=== PATIENT | male | born 1990 | race Two or more races ===

== ENCOUNTER 2020-11-01 13:37 | Emergency (ER) | payer SELFPAY ==
--- NOTE | 2020-11-01 14:05 | NUR ---
CALLED IN ED WAITING ROOM. NO RESPONSE.
--- NOTE | 2020-11-01 14:33 | NUR ---
PATIENT LEFT WITHOUT BEING TRIAGE
--- NOTE | 2020-11-01 14:33 | NUR ---
CALLLED IN ED WAITING ROOM. NO RESPONSE.
== END 2020-11-01 14:34 | disposition left against medical advice (07) ==
LOC: ER 13:41
DX: Z53.21 Procedure and treatment not carried out due to patient leaving prior to being seen by health care provider (principal)